=== PATIENT | female | born 1960 | race African-American/Black ===

== ENCOUNTER 2017-02-01 19:10 | Emergency (ER) | payer OTHER ==
[2017-02-01 19:44] LABS: BASO% 0.1 % (0.0-0.8); HEMATOCRIT 32.6 % (37.0-47.0); HEMOGLOBIN 10.5 g/dL (12.0-16.0); IMM GRAN# 0.02 X1000 (0.0-0.04); IMM GRAN% 0.2 % (0.0-0.5); LYMPH# 0.44 X1000 (1.2-3.4); LYMPH% 4.7 % (20.5-51.1); MANUAL DIFF NEEDED? NO; MCH 28.6 PG (27-31); MCHC 32.2 g/dL (33-37); MCV 88.8 FL (81-99); MONO% 4.2 % (1.7-9.3); MPV 8.5 FL (7.4-10.4); NEUT% 90.8 % (42.2-75.2); PLT 206 X1000 (130-400); RBC 3.67 XMIL (4.2-5.4)
[2017-02-01 20:02] LABS: INR 1.12; PROTIME 11.4 Seconds (9.2-11.7); PTT 35.1 Seconds (22.0-36.0)
[2017-02-01 20:09] LABS: ALBUMIN 3.4 g/dL (3.5-5.0); CALCIUM 8.6 mg/dL (8.8-10.2); POTASSIUM 3.5 mmol/L (3.5-5.1); TOTAL BILIRUBIN 0.44 mg/dL (0.20-1.00); TOTAL PROTEIN 6.7 g/dL (6.3-8.3)
[2017-02-01] MEDS ORDERED: MOTRIN PO ONE (20:17)
[2017-02-01] MEDS ORDERED: NS 1,000 ML IV ONE (20:17)
[2017-02-01] MEDS ORDERED: ROCEPHIN 1 GM/NS 50 ML IV ONE (20:29)
[2017-02-01] MEDS ORDERED: TYLENOL PO ONE (20:29)
--- NOTE | 2017-02-01 20:32 | PROVIDER DOCUMENTATION ---
HPI-General Adult - General Source: patient, family (Dad and ) - History of Present Illness -Gen Adult Nature of Presenting Problems: 56 y/o F brought to the ED by her and dad for shaking and slurring her speech. The same thing happened last evening. Pt is a chronic pain pt taking [place] 5 times a day from an injury in 2002. Pt denies sore throat, cough, SOB. Fever was 103.1 when she got to the ED. Pt states she took her last norco at 1pm while states she took it right before coming to the ED. Location of Pain/Injury: reports: upper extremity (right arm), back, pelvis Pain Radiation: reports: no radiation Quality of Pain: reports: aching Severity: reports: moderate, severe Onset/Duration: reports: abrupt (5:45) Timing: reports: still present Associated Symptoms: reports: back/neck pain, fatigue, fever/chills, muscle aches. denies: anxiety, constipation, cough, diaphoresis, diarrhea, dizziness, EENT symptoms, headaches, sinus congestion/drainage, nausea, shortness of breath , sensory/motor loss, swelling/mass in abdomen, vomiting, trouble walking Similar Symptoms Previously?: Yes Recently seen or treated by another doctor?: No <Taiwo Rodas - Last Filed: 02/01/17 21:20> <Houston Rueda - Last Filed: 02/01/17 21:29> - General Chief Complaint: Altered Mental Status Stated Complaint: POSS STROKE Time Seen by Provider: 02/01/17 20:03 Allergies/Adverse Reactions: Patient Allergies Allergy/AdvReac Type Severity Reaction Status Date / Time No Known Allergies Allergy Verified 02/01/17 20:05 Home Medications: Home Medication List Medication Instructions Recorded Confirmed Last Taken Type Eszopiclone [Lunesta] 3 mg PO QHS 07/22/12 02/01/17 11/08/16 History Fluticasone 50 Mcg Nasal [place] 2 spray MISC DAILY 07/22/12 02/01/17 11/15/16 History [Flonase] Amlodipine [Norvasc] 2.5 mg PO PRN PRN 10/18/16 02/01/17 11/15/16 History Calcium Carbonate [Caltrate 600] 600 mg PO DAILY 10/18/16 02/01/17 11/15/16 History Cetirizine HCl [Zyrtec] 10 mg PO DAILY 10/18/16 02/01/17 11/08/16 History Fluoxetine [Prozac] 10 mg PO DAILY 10/18/16 02/01/17 11/17/16 04:30 History Lidocaine [Lidoderm] 1 patch TP BID 10/18/16 02/01/17 11/13/16 History Multivitamins/Minerals [Centrum 1 each PO DAILY 10/18/16 02/01/17 11/15/16 History Chewable] Polyethylene Glycol 3350 [Miralax] 17 gm PO PRN PRN 10/18/16 02/01/17 11/16/16 History Gabapentin 600 mg PO TID 10/20/16 02/01/17 11/16/16 History Methocarbamol [Robaxin-750] 1 cap PO TID 11/17/16 02/01/17 11/17/16 04:30 History Levofloxacin [Levaquin] 500 mg PO DAILY #10 tablet 02/01/17 Unknown Rx Ondansetron Odt [Zofran 4 mg Odt] 4 mg PO Q6H PRN PRN #10 tablet 02/01/17 Unknown Rx Oxycodone HCl/Acetaminophen 1 each PO 5XDAY 02/01/17 02/01/17 Unknown History [Percocet 10-325 mg Tablet] Review of Systems - Adult - REVIEW OF SYSTEMS - ADULT Constitutional: reports: chills, fever Eyes: reports: no symptoms reported Ears, Nose, Mouth & Throat: denies: ear pain, sinus problem, nose pain, throat pain Cardiovascular: denies: chest pain, edema, irregular heart rate, palpitations, syncope Respiratory: denies: cough, shortness of breath, wheezing Gastrointestinal: denies: abdominal pain, diarrhea, nausea, vomiting Genitourinary: reports: no symptoms reported Musculoskeletal: reports: bone pain, back pain, joint pain. denies: neck pain Integumentary: reports: no symptoms reported Neurological: reports: slurred speech. denies: dizziness/vertigo, headache/ migraines, numbness, syncope Psychiatric: reports: no symptoms reported Endocrine: reports: no symptoms reported Hematologic/Lymphatic: reports: no symptoms reported Allergic/Immunologic: reports: no symptoms reported All Other Systems: Reviewed and Negative <Taiwo Rodas - Last Filed: 02/01/17 21:20> Past History - Adult - PAST MEDICAL HISTORY-ADULT Review of Records: reports: Old Records Reviewed, Nursing Assessment Review, Medications Reviewed Musculoskeletal: reports: chronic pain, neck/back injury. denies: spinal fracture - PRIOR SURGERIES/PROCEDURES Surgical/Procedure History: reports: none - SOCIAL HISTORY Smoking: non-smoker, quit greater than 1 year Substance Use: opiates Living Situation: family <Taiwo Rodas - Last Filed: 02/01/17 21:20> Physical Exam-General - PHYSICAL EXAM-ADULT Initial Vital Signs Reviewed: Yes - CONSTITUTIONAL General Appearance: appears well, alert, no apparent distress - EYES Eyes: PERRL/EOMI, pink conjunctivae - HEAD, EARS, NOSE, MOUTH & THROAT HENMT: moist mucous membranes, normal ENT inspection, TMs normal, pharynx normal - NECK Neck: non-tender, full range of motion, supple, normal inspection - RESPIRATORY Respiratory: lungs clear, normal breath sounds - CARDIOVASCULAR Cardiovascular: normal peripheral pulses, tachycardia - GASTROINTESTINAL (ABDOMEN) Abdominal Exam: normal bowel sounds, non tender, soft - MUSCULOSKELETAL Back Exam: normal inspection, no CVA tenderness, no vertebral tenderness Extremity: normal range of motion, non-tender, normal gait, normal inspection - SKIN Integumentary: normal color, normal turgor, warm/dry - NEUROLOGIC Neurologic: grossly normal, no motor/sensory deficits - PSYCHIATRIC Psych/Mental Status: normal mood/affect, normal thought content, normal thought process, oriented x 3 <Taiwo Rodas - Last Filed: 02/01/17 21:20> Progress - EKG 1 Time of EKG reading by physician:: 19:20 EKG Read and Signed by:: Houston Rueda EKG Interpretation (*Must complete 3 of following elements*): Abnormal Rate: 120 Rhythm: Sinus tach QRS: RBB, LVH Comments: T wave abnormality <Taiwo Rodas - Last Filed: 02/01/17 21:20> - REASSESSMENT Reassessment #1 Time Reassessed: 21:27 (pt aware of ct and labs results) Status: improving - XRAY 1 XRAY Study: Chest (nad) - CT/MRI 1 CT Study: Head, Neck Impression: See EMR Report (nad) <Houston uReda - Last Filed: 02/01/17 21:29> Departure <Taiwo Rodas - Last Filed: 02/01/17 21:20> - Departure Time of Disposition Order: 21:24 Certified Medical Emergency: Emergent <MohitHouston Qureshi - Last Filed: 02/01/17 21:29> - Departure DIAGNOSIS: Fever, UTI (urinary tract infection) Disposition: HOME 01 Condition: Stable Additional Instructions: ED Follow Up Instructions: You have been treated by a care provider in the Emergency Department. These instructions are being provided to you so you can have an understanding of how to care for yourself upon discharge. Upon discharge from the Emergency Department, you are responsible for making arrangements for follow-up care by a physician of your choice. Take all prescribed medications as directed. Return to the Emergency Department immediately for any new or worsening symptoms. You may call the Physician Referral phone number at [phone] to obtain a list of Physicians who are taking new patients. Prescriptions: Levofloxacin [Levaquin] 500 mg PO DAILY #10 tablet Ondansetron Odt [Zofran 4 mg Odt] 4 mg PO Q6H PRN PRN #10 tablet PRN Reason: Nausea And Vomiting Attestation - Scribe Verification/Attestation Scribe:: Taiwo Rodas Acting as Scribe for:: Houston Rueda Scribe documention review:: This chart was documented by a scribe and accurately reflects the service the provider performed and the decisions made by the provider. <Taiwo Rodas - Last Filed: 02/01/17 21:20> Physician Attestation
[2017-02-01 20:42] LABS: ALLEN TEST YES; BE 0.1 mmoll (-3.0-3.0); BLOOD TYPE ARTERIAL; DRAW SITE R BRACHIAL; METHB 0.8 % (0.0-1.5); O2(CT) 14.5 mL/dL (15.0-23.0); PCO2(98.6) 32 mmHg (35-45); PO2(98.6) 78 mmHg (60-100); SAMPLE BLOOD; SAO2 95.2 % (95.0-100.0); THB 10.9 g/dL (11.5-17.4); pH(98.6) 7.47 (7.35-7.45)
[2017-02-01 20:43] LABS: MODALITY ROOM AIR
[2017-02-01 20:44] LABS: URINE SOURCE CATH
[2017-02-01 20:51] LABS: BILIRUBIN URINE NEGATIVE (NEGATIVE); BLOOD URINE MODERATE (NEGATIVE); COLOR ORANGE; GLUCOSE URINE NEGATIVE (NEGATIVE); LEUKOCYTES URINE LARGE (NEGATIVE); NITRITE URINE NEGATIVE (NEGATIVE); PROTEIN URINE 100 mg/dL (NEGATIVE); SP GRAVITY URINE 1.014; TURBIDITY URINE TURBID (CLEAR); URINE MICRO REVIEW NEEDED? YES; UROBILINOGEN URINE 2 mg/dL (NORMAL)
[2017-02-01 20:56] LABS: UR EPITHELIAL CELLS <10 /HPF (<10); URINE BACTERIA 4+ /HPF; URINE CULTURE NEEDED? YES; URINE WBC TNTC /HPF (<10)
[2017-02-01 21:38] LABS: UR AMPHETAMINES QUAL NONE DETECTED (NONE DETECT); UR BARBITUATES QUAL NONE DETECTED (NONE DETECT); UR BENZODIAZEPIN QUAL NONE DETECTED (NONE DETECT); UR CANNABINOIDS QUAL NONE DETECTED (NONE DETECT); UR COCAINE QUAL NONE DETECTED (NONE DETECT); UR METHADONE QUAL NONE DETECTED (NONE DETECT); UR OPIATES QUAL NONE DETECTED (NONE DETECT); UR OXYCODONE QUAL PRESUMPTIVE POSITIVE (NONE DETECT); UR PCP QUAL NONE DETECTED (NONE DETECT)
[2017-02-01] MEDS ORDERED: LEVAQUIN PO ONE (21:52)
[2017-02-01 22:08] VITALS: BP 108/70
--- NOTE | 2017-02-02 07:48 | Diag Imaging Result Document ---
PROCEDURE NAME: HEAD W/O CONTRAST - 02/01/[address], 02/01/2017: A CT dose reduction protocol was used. COMPARISON: None. FINDINGS: The ventricles and sulci are normal in size and contour. There is no mass, hemorrhage, or evidence of acute ischemia. The bony calvaria is intact. The visualized paranasal sinuses and mastoid air cells are clear. IMPRESSION: Negative head CT. MTDD
--- NOTE | 2017-02-02 08:14 | Diag Imaging Result Document ---
PROCEDURE NAME: CHEST-2 VIEWS - 02/01/2017 PA AND LATERAL RADIOGRAPH OF THE CHEST: COMPARISON: 10/29/2012. FINDINGS: The lungs are grossly clear. There is no discrete pleural fluid collection or evidence of pneumothorax. The cardiomediastinal silhouette and upper airway are grossly unremarkable. IMPRESSION: No evidence of acute chest pathology.
--- NOTE | 2017-02-02 10:20 | EKG Report ---
Test Performed on : 02/01/2017 7:20:35 PM Test Reason : POS CVA Blood Pressure : / mmHG Vent. Rate : 120 BPM Atrial Rate : 120 BPM P-R Int : 146 ms QRS Dur : 132 ms QT Int : 338 ms P-R-T Axes : 063 -29 004 degrees QTc Int : 477 ms Sinus tachycardia. Right bundle branch block Moderate voltage criteria for LVH, may be normal variant T wave abnormality, consider lateral ischemia Abnormal ECG When compared with ECG of 22-JUL-2012 03:51, Criteria for Septal infarct are no longer present Unconfirmed Result
== END 2017-02-01 22:09 | disposition home or self-care (01) ==
LOC: ED 19:10
DX: N39.0 Urinary tract infection, site not specified (principal); R50.9 Fever, unspecified; R41.82 Altered mental status, unspecified; M54.9 Dorsalgia, unspecified; R47.81 Slurred speech; R00.0 Tachycardia, unspecified; G89.29 Other chronic pain; Z87.891 Personal history of nicotine dependence; R94.31 Abnormal electrocardiogram [ECG] [EKG]; Z79.899 Other long term (current) drug therapy; Z79.51 Long term (current) use of inhaled steroids
CPT/HCPCS: 70450; 71020; 80053; 81001; 82550; 82805; 82948; 83605; 84484; 85025; 85610; 85730; 87077; 87088; 87186; 87804; 93005; 96365; G0480; J0696; J7030; 80320; 80324; 80345; 80346; 80349; 80353; 80358; 80361; 80365; 83992